=== PATIENT | male | born 1980 | race Two or more races ===

== ENCOUNTER 2016-09-22 12:54 | Emergency (ER) | payer OTHER ==
[~2016-09-22] VITALS: Ht 175.3 cm; Wt 106.1 kg
[~2016-09-22 12:54] MED LIST: ACET325T9 PO; NYST1000 PO; PANT40TA5 PO; VALA10005 PO
[2016-09-22] MEDS ORDERED: LIDO:MAALOX:BENADRYL 1:1:1 180 ML BOTTLE. PO PRN (13:30)
--- NOTE | 2016-09-22 13:53 | ED.ADGEN ---
Past Medical History Past Medical History: Anemia, Cancer Additional Past Medical Histor: stomach cancer Past Surgical History: Other Additional Past Surgical Histo: exploratory lap, port placement L chest Alcohol Use: Occasionally Drug Use: None Adult General Chief Complaint Chief Complaint: OTHER COMPLAINTS HPI HPI Patient is a 35 year old man, history of stomach cancer currently receiving chemotherapy with cisplatin and 5-FU, whose last chemotherapy session was September 11, who is on Magic mouthwash, fluconazole, and acyclovir for mouth and throat sores, who presents emergency Department complaining of pain in his mouth and throat. Patient states he has several episodes of nausea and vomiting on Thursday, one episode yesterday, and no episodes of vomiting today. States he still feels slightly nauseous. Denies any chest pain or shortness breath, any fevers or chills, states that he has not been eating because he is having pain. He states that he spoke with his oncologist office today, and came to the ED for evaluation. Patient denies any injuries, any other complaints. Review of Systems Review of Systems Constitutional: Denies fever or chills. [] Eyes: Denies change in visual acuity. [] HENT: Denies nasal congestion, sore throat and mouth pain. Respiratory: Denies cough or shortness of breath. [] Cardiovascular: Denies chest pain or edema. [] GI: Denies abdominal pain, nausea, vomiting, bloody stools or diarrhea. [] : Denies dysuria. [] Musculoskeletal: Denies back pain or joint pain. [] Integument: Denies rash. [] Neurologic: Denies headache, focal weakness or sensory changes. [] Endocrine: Denies polyuria or polydipsia. [] Lymphatic: Denies swollen glands. [] Psychiatric: Denies depression or anxiety. [] Current Medications Current Medications Current Medications Medications (Trade) Dose Ordered Sig/Justine Start Time Stop Time Status Last Admin Dose Admin Multi-Ingredient Mouthwash/Gargle (Magic Mouthwash) 10 ml PRN QID PRN 09/22/16 13:30 09/22/16 15:39 DC 09/22/16 13:54 10 ML Allergies Allergies Allergies Coded Allergies Type Severity Reaction Last Updated Verified No Known Drug Allergies 04/18/16 No Physical Exam Physical Exam Constitutional: Well developed, well nourished, no acute distress, non-toxic appearance. [] HENT: Normocephalic, atraumatic, bilateral external ears normal, oropharynx moist, patient with injection of the oropharynx, noted to have mucositis on the left side of the tongue, no evidence of plaquing, no ulcerations, nose normal. [ ] Eyes: PERRLA, EOMI, conjunctiva normal, no discharge. [] Neck: Normal range of motion, no tenderness, supple, no stridor. [] Cardiovascular:Heart rate regular rhythm, no murmur, S1, S2, rubs or gallops. [] Lungs & Thorax: Bilateral breath sounds clear to auscultation, no wheezing, rhonchi, rales. No chest wall crepitus or tenderness. [] Abdomen: Bowel sounds normal, soft, no tenderness, no masses, no pulsatile masses. [] Skin: Warm, dry, no erythema, no rash. [] Back: No tenderness, no CVA tenderness. [] Extremities: No tenderness, no cyanosis, no clubbing, ROM intact, no edema. [] Neurologic: Alert and oriented X 3, normal motor function, normal sensory function, no focal deficits noted. [] Psychologic: Affect normal, judgement normal, mood normal. [] Current Patient Data Vital Signs Vital Signs Date Time Temp Pulse Resp B/P Pulse Ox O2 Delivery O2 Flow Rate FiO2 09/22/16 15:14 67 20 139/85 99 Room Air 09/22/16 13:21 97.8 97.8 Lab Values Laboratory Tests Test 09/22/16 14:48 POC Hemoglobin 13.6g/dL (14-18) L POC Hematocrit 40% (37-52) POC Sodium 139mmol/L (135-145) POC Potassium 3.9mmol/L (3.5-5.0) POC Chloride 101mmol/L (98-110) POC Total CO2 24mmol/L (23-32) Anion Gap 18mmol/L (6-14) H POC Blood Urea Nitrogen 9mg/dL (8-26) POC Creatinine 0.9mg/dL (0.5-1.4) Glucose Level 101mg/dL (70-99) H POC Ionized Calcium (Emmy) 1.12mmol/L (1.13-1.32) L Laboratory Tests 09/22/16 14:48 EKG EKG ECG: Rhythm strip: Heart rate 80 bpm, sinus rhythm, no ectopy. As interpreted by me. [] Radiology/Procedures Radiology/Procedures Not indicated. [] Course & Med Decision Making Course & Med Decision Making Pertinent Labs and Imaging studies reviewed. (See chart for details) I spoke with Arnold, nurse for Dr. Antony. She states that she did speak to the patient this morning, she encouraged patient to come to the office for evaluation, however the patient stated that he preferred to come to the ED. She states the patient was evaluated on Thursday, at that time he stated he had not been compliant with her medications including his acyclovir, and was encouraged to take medications as directed. Patient states to me that he is taking medications directed at this time. Patient is no evidence of dehydration, or other concerning findings, he states that he believes that he may have had a temperature on Thursday, but is afebrile at this time, and has not taken any antipyretics. He has not had any vomiting for the past 2 days, and is tolerating fluids without issue. Discussed with Arnold that there are no indications based the patient's current examination, and history of chemotherapy performed more than 10 days ago to perform additional evaluation at this time, she is agreeable with the plan for the patient to be discharged, to continue his home medications, and to follow with Dr. Antony's office, as they can provide IV fluids, which are not indicated at this time, and additional medications as needed. Patient received mouthwash in the emergency department as stated, on reevaluation states that he is feeling better. I-STAT not reveal any evidence of acutely concerning findings, no evidence of dehydration both clinically or telemetry studies. I did discuss with patient concerning symptoms that prompt return to the emergency department, and a phone call back to his oncologist office, emphasizing the patient that he is best served by contacting his oncologist if he is experiencing these type of issues, as they are better equipped to manage these type of complications of chemotherapy, and have a better understanding of his history and specific needs. Dated patient is tolerating oral fluids in the ED without issue. Patient voiced understanding and agreement, was given additional bottle of Magic mouthwash, states that he has his acyclovir and fluconazole at home which she is taking along with his other medications, discharged home in stable condition with plan as above. Dragon Disclaimer Dragon Disclaimer This electronic medical record was generated, in whole or in part, using a voice recognition dictation system. Departure Impression: Primary Impression: Dysphagia Additional Impression: Complication of chemotherapy Disposition: 01 HOME, SELF-CARE Condition: IMPROVED Problem Qualifiers ROMAINE CHI DO Sep 22, 2016 13:53
[2016-09-22 14:52] LABS: POTASSIUM ISTAT 3.9 mmol/L (3.5-5.0)
[2016-09-22 15:14] VITALS: BP 139/85
== END 2016-09-22 15:38 | disposition home or self-care (01) ==
LOC: ER 12:54
DX: R13.10 Dysphagia, unspecified (principal); R11.2 Nausea with vomiting, unspecified; T37.8X5A Adverse effect of other specified systemic anti-infectives and antiparasitics, initial encounter; T37.5X5A Adverse effect of antiviral drugs, initial encounter; Z85.028 Personal history of other malignant neoplasm of stomach; Y92.89 Other specified places as the place of occurrence of the external cause
CPT/HCPCS: 80047; 99283